=== PATIENT | male | born 1960 | race Hispanic/Latino ===

== ENCOUNTER 2020-07-06 10:34 | Observation (INO) | payer BC, OTHER ==
--- NOTE | 2020-07-06 11:54 | RAD REPORT ---
EXAM DESCRIPTION: RAD - Chest Single View - 07/06/2020 11:43 am CLINICAL HISTORY: SOB Chest pain. COMPARISON: No comparisons FINDINGS: Portable technique limits examination quality. Moderate bilateral pulmonary edema. The heart is moderately enlarged. No displaced fractures. IMPRESSION: Moderate CHF versus volume overload pattern.
[2020-07-06 12:15] LABS: Absolute Lymphocytes (CBC) 0.7 K/uL (0.7-4.9); Basophils % 0.5 % (0-1.3); Hematocrit 32.5 % (39.6-49.0); Lymphocytes % 7.3 % (15.3-44.8); MPV 7.9 fL (7.6-11.3); RBC Red Blood Cell Count 4.23 M/uL (4.33-5.43)
[2020-07-06 12:17] LABS: Protime INR 1.02
[2020-07-06 12:32] LABS: ALT/SGPT 18 U/L (12-78); AST/SGOT 14 U/L (15-37); Alkaline Phosphatase 90 U/L (45-117); BUN Blood Urea Nitrogen 65 mg/dL (7-18); Bicarbonate 29 mmol/L (21-32); Bilirubin Direct 0.2 mg/dL (0-0.2); Bilirubin Total 0.6 mg/dL (0.2-1.0); Glucose Level 147 mg/dL (74-106); Magnesium 2.5 mg/dL (1.8-2.4); NT PRO-BNP 22709 pg/mL (<125); Protein, Total 7.7 g/dL (6.4-8.2); Sodium Level 144 mmol/L (136-145); Troponin (Emerg Dept Use Only) < 0.02 ng/mL (0.0-0.045)
[2020-07-06 12:54] LABS: Blood Morphology Comment NOTED (NOT SEEN); Platelet Estimate ADEQ; White Blood Cell Scan OK (OK)
[2020-07-06 12:55] LABS: Anisocytosis 2+
--- NOTE | 2020-07-06 13:29 | EDPHYS ---
Physician Documentation [facility] Name: Robin Lee Age: 60 yrs Sex: Male : 1960 Arrival Date: 07/06/2020 Time: 10:36 Bed 13 Private MD: ED Physician Chato Trent HPI: 07/06 11:17 This 60 yrs old Male presents to ER via Wheelchair with complaints of pm1 Shortness Of Breath, Dizziness, Cough. 11:17 The patient has shortness of breath with light activity. Onset: The symptoms/episode pm1 began/occurred 1 month(s) ago. Duration: The symptoms are continuous, and are steadily getting worse. The patient's shortness of breath is aggravated by exertion, 10 pound weight gain in the past 1 month with onset of his exertional shortness of breath. Associated signs and symptoms: Pertinent positives: non-productive cough, 3 days constipation, Pertinent negatives: chest pain, fever, nausea, vomiting. Severity of symptoms: in the emergency department the symptoms are worse Patient reports shortness of breath is worse with exertion because the past two days he gets dizziness with his shortness of breath and had a near syncopal event today with light exertion. The patient has not experienced similar symptoms in the past. PCP Dr. Kc, Nephrology [facility]. Patient still creates urine. Onset of peritoneal dialysis in September 2019. Historical: - Allergies: 10:44 No Known Allergies; ca1 - PMHx: 10:44 peritoneal dialysis; Hypertension; Diabetes - NIDDM; High Cholesterol; ca1 - PSHx: 10:44 Peritoneal dialysis port; ca1 - Immunization history:: Adult Immunizations up to date, Flu vaccine is up to date. - Social history:: Smoking status: Patient denies any tobacco usage or history of. ROS: 11:17 Constitutional: Negative for fever, chills, and weight loss, Eyes: Negative for injury, pm1 pain, redness, and discharge, ENT: Negative for injury, pain, and discharge. 11:17 Back: Negative for injury and pain, : Negative for injury, bleeding, discharge, and swelling, MS/Extremity: Negative for injury and deformity, Skin: Negative for injury, rash, and discoloration. 11:17 Cardiovascular: Positive for bilateral pedal edema, Negative for chest pain. 11:17 Respiratory: Positive for cough, shortness of breath, on exertion. 11:17 Abdomen/GI: Positive for constipation, Negative for abdominal pain, nausea, vomiting, and diarrhea. 11:17 Neuro: Positive for dizziness, with shortness of breath and exertion. Exam: 11:17 Constitutional: This is a well developed, well nourished patient who is awake, alert, pm1 and in no acute distress. Head/Face: Normocephalic, atraumatic. 11:17 Skin: Warm, dry with normal turgor. Normal color with no rashes, no lesions, and no evidence of cellulitis. MS/ Extremity: Pulses equal, no cyanosis. Neurovascular intact. Full, normal range of motion. 11:17 Cardiovascular: Exam negative for acute changes, Rate: normal, Rhythm: regular, Pulses: no pulse deficits are appreciated, Edema: 2+ edema to level of bialteral lower extermities. 11:17 Respiratory: the patient does not display signs of respiratory distress, Breath sounds: decreased breath sounds, are located in both bases. 11:17 Abdomen/GI: Inspection: obese Palpation: abdomen is soft and non-tender, in all quadrants. 11:17 Neuro: Exam negative for acute changes, Orientation: is normal, Mentation: is normal, Motor: is normal, moves all fours. Vital Signs: 10:41 BP 170 / 72; Pulse 64; Resp 18 S; Temp 98.9(TE); Pulse Ox 97% on R/A; Weight 115.21 kg ca1 (R); Height 5 ft. 9 in. (175.26 cm) (R); 11:43 BP 167 / 72; Pulse 66; Resp 18; Pulse Ox 96% on R/A; ph 12:00 BP 160 / 65; Pulse 62; Resp 14; Pulse Ox 97% on R/A; ph 13:00 BP 166 / 76; Pulse 65; Resp 16; Pulse Ox 97% on R/A; zb 14:00 BP 172 / 80; Pulse 63; Resp 16; Pulse Ox 97% on R/A; zb 15:00 BP 171 / 79; Pulse 63; Resp 18; Pulse Ox 95% on R/A; zb 16:00 BP 173 / 103; Pulse 62; Resp 16; Pulse Ox 97% on R/A; zb 17:00 BP 180 / 80; Pulse 63; Resp 16; Pulse Ox 96% on R/A; zb 10:41 Body Mass Index 37.51 (115.21 kg, 175.26 cm) ca1 MDM: 10:54 Patient medically screened. pm1 12:33 Data reviewed: vital signs. Data interpreted: Pulse oximetry: on is 97 %. pm1 Interpretation: normal. 13:25 Physician consultation: Lakisha Pa MD regarding consult, patient's pm1 condition, and will see patient recommended lasix 80mg IVP BID. Will see the patient provided that he can stay in the hospital here due to peritoneal dialysis. 13:27 Counseling: I had a detailed discussion with the patient and/or guardian regarding: the pm1 historical points, exam findings, and any diagnostic results supporting the discharge/admit diagnosis, radiology results, the need for further work-up and treatment in the hospital, to return to the emergency department if symptoms worsen or persist or if there are any questions or concerns that arise at home. 13:38 ED course: Station Mechanic Apprentice contacted and patient can stay in the hospital with pm1 peritoneal dialysis provided he and his due the dialysis treatment and bring all their supplies for it. Patient and informed and she is going to go home to get his dialysis supplies and CPAP machine. 13:42 Physician consultation: Lakisha Pa MD informed her that patient is able pm1 to stay in the hospital here and we would appreciate her consultation . 14:03 Physician consultation: Tico Padron was called at 14:03, was contacted at 14:03, pm1 regarding admission, patient's condition, and will see patient. 07/06 11:02 Order name: Basic Metabolic Panel pm1 07/06 11:02 Order name: CBC with Diff pm1 07/06 11:02 Order name: LFT's pm1 07/06 11:02 Order name: Magnesium; Complete Time: 12:43 pm1 07/06 11:02 Order name: NT PRO-BNP; Complete Time: 12:43 pm1 07/06 11:02 Order name: PT-INR; Complete Time: 12:43 pm1 07/06 11:02 Order name: Troponin (emerg Dept Use Only); Complete Time: 12:43 pm1 07/06 11:02 Order name: Flu; Complete Time: 13:59 pm1 12/31 11:02 Order name: Strep; Complete Time: 13:59 pm1 07/06 11:02 Order name: Basic Metabolic Panel; Complete Time: 12:43 EDMS 07/06 11:02 Order name: CBC with Automated Diff; Complete Time: 13:04 EDMS 07/06 11:02 Order name: Liver (Hepatic) Function; Complete Time: 12:43 EDMS 07/06 12:17 Order name: CBC Smear Scan; Complete Time: 13:04 EDMS 07/06 11:02 Order name: XRAY Chest (1 view); Complete Time: 11:55 pm1 07/06 11:02 Order name: EKG; Complete Time: 11:03 pm1 07/06 11:02 Order name: Cardiac monitoring; Complete Time: 11:37 pm1 07/06 11:02 Order name: EKG - Nurse/Tech; Complete Time: 11:36 pm1 07/06 11:02 Order name: IV Saline Lock; Complete Time: 12:32 pm1 07/06 11:02 Order name: Labs collected and sent; Complete Time: 12:33 pm1 07/06 11:02 Order name: O2 Per Protocol; Complete Time: 11:36 pm1 07/06 11:02 Order name: O2 Sat Monitoring; Complete Time: 11:36 pm1 07/06 11:02 Order name: Droplet/Contact Precautions; Complete Time: 12:07 pm1 07/06 13:44 Order name: Throat Culture EDMS 07/06 15:19 Order name: SARS-COV-2 RT PCR; Complete Time: 15:28 EDMS Administered Medications: 15:01 Drug: Lasix 80 mg Route: IVP; Site: left hand; zb 17:28 Follow up: Response: No adverse reaction zb Disposition: 07/07 07:01 Co-signature as Attending Physician, Chato Trent MD I agree with the assessment and aliya plan of care. Disposition: 07/06/20 13:29 Hospitalization ordered by Tico Padron for Inpatient Admission. Preliminary diagnosis are Pulmonary edema - volume overload, End stage renal disease, Shortness of breath, Dizziness and giddiness. - Bed requested for Telemetry/MedSurg (Inpatient). - Status is Inpatient Admission. zb - Condition is Stable. - Problem is new. - Symptoms have improved. Signatures: Dispatcher [employer] EDMS Marjorie Leyva RN Chato Siegel MD MD cha Marinas, Patrick, SUBSEA ENGINEER SUBSEA ENGINEER pm1 Paige Arango RN RN ca1 Brown, Zipporah, RN RN zb Corrections: (The following items were deleted from the chart) 07/06 14:33 11:03 CORONAVIRUS+MR.LAB.BRZ ordered. [facility] 16:45 13:29 Hospitalization Ordered by Tico Padron for Inpatient Admission. Preliminary diagnosis is Pulmonary edema - volume overloadEnd stage renal disease; Shortness of breath; Dizziness and giddiness. Bed requested for Telemetry/MedSurg (Inpatient). Status is Inpatient Admission. Condition is Stable. Problem is new. Symptoms have improved. pm1 17:38 16:45 07/06/2020 13:29 Hospitalization Ordered by Tico Padron for Inpatient zb Admission. Preliminary diagnosis is Pulmonary edema - volume overloadEnd stage renal disease; Shortness of breath; Dizziness and giddiness. Bed requested for Telemetry/MedSurg (Inpatient). Status is Inpatient Admission. Condition is Stable. Problem is new. Symptoms have improved. dw
--- NOTE | 2020-07-06 13:29 | ER ---
Nurse's Notes [facility] Name: Robin Lee Age: 60 yrs Sex: Male : 1960 Arrival Date: 07/06/2020 Time: 10:36 Bed 13 Private MD: Diagnosis: End stage renal disease;Shortness of breath;Pulmonary edema-volume overload;Dizziness and giddiness Presentation: 07/06 10:41 Chief complaint: Parent and/or Guardian states: Coughing, congestion, SOB and ca1 lightheadedness x 1 - 2 days worse today. Peritoneal dialysis pt. Denies fever. Coronavirus screen: Client denies travel out of the [place] in the last 14 days. congestion, cough unrelated to allergies, shortness of breath, Client presents with at least one sign or symptom that may indicate coronavirus-19. Standard/surgical mask placed on the client. Provider contacted for isolation considerations. The client reports previous COVID testing was negative. Date of collection: May 2020. Ebola Screen: Patient negative for fever greater than or equal to 101.5 degrees Fahrenheit, and additional compatible Ebola Virus Disease symptoms Patient denies exposure to infectious person. Patient denies travel to an Ebola-affected area in the 21 days before illness onset. No symptoms or risks identified at this time. Initial Sepsis Screen: Does the patient meet any 2 criteria? No. Patient's initial sepsis screen is negative. Does the patient have a suspected source of infection? No. Patient's initial sepsis screen is negative. Risk Assessment: Do you want to hurt yourself or someone else? Patient reports no desire to harm self or others. 10:41 Method Of Arrival: Wheelchair ca1 10:41 Acuity: CARLEE 3 ca1 10:41 Onset of symptoms was July 06, 2020. ca1 Historical: - Allergies: 10:44 No Known Allergies; ca1 - PMHx: 10:44 peritoneal dialysis; Hypertension; Diabetes - NIDDM; High Cholesterol; ca1 - PSHx: 10:44 Peritoneal dialysis port; ca1 - Immunization history:: Adult Immunizations up to date, Flu vaccine is up to date. - Social history:: Smoking status: Patient denies any tobacco usage or history of. Screenin:01 Abuse screen: Denies threats or abuse. Denies injuries from another. Nutritional ph screening: No deficits noted. Tuberculosis screening: No symptoms or risk factors identified. Fall Risk None identified. Assessment: 11:42 General: Appears in no apparent distress. comfortable, well groomed, Behavior is calm, ph cooperative, appropriate for age, Denies fever. Pain: Denies pain. Neuro: Level of Consciousness is awake, alert, obeys commands, Oriented to person, place, time, situation, Reports dizziness. Cardiovascular: Reports fatigue, lightheadedness, shortness of breath, Denies chest pain, Capillary refill < 3 seconds in bilateral fingers Patient's skin is warm and dry. Rhythm is regular. Respiratory: Reports shortness of breath at rest on exertion cough that is non-productive, Airway is patent Respiratory effort is even, unlabored, Respiratory pattern is regular, symmetrical. GI: No signs and/or symptoms were reported involving the gastrointestinal system. GI: Peritoneal dialysis catheter capped. Site is clean and dry. Derm: Skin is intact, Skin is pink, warm \T\ dry. Musculoskeletal: Circulation, motion, and sensation intact. Range of motion: intact in all extremities. 12:00 General: Appears in no apparent distress. comfortable, well groomed, Behavior is calm, ph cooperative, appropriate for age, Denies fever, chills. Pain: Denies pain. Neuro: Level of Consciousness is awake, alert, obeys commands, Oriented to person, place, time, situation, Reports dizziness. Cardiovascular: Reports fatigue, lightheadedness, shortness of breath, Denies chest pain, Heart tones S1 S2 muffled Capillary refill Patient's skin is warm and dry. Edema pitting to left ankle, left foot, left toes, right ankle, right foot and right toes Rhythm is regular. Respiratory: Reports shortness of breath at rest on exertion cough that is non-productive, labored breathing Airway is patent Respiratory effort is even, unlabored, Respiratory pattern is regular, symmetrical, Breath sounds are diminished in right middle lobe, left lower lobe and right lower lobe. GI: Abdomen is round non-distended, obese, Peritoneal dialysis catheter capped. Site is clean and dry. Reports constipation. : No signs and/or symptoms were reported regarding the genitourinary system. EENT: No signs and/or symptoms were reported regarding the EENT system. Derm: Skin is intact, is healthy with good turgor, Skin is dry, Skin is normal. Derm: Skin is intact, is healthy with good turgor, Skin is dry, Skin is normal. Musculoskeletal: Circulation, motion, and sensation intact. Range of motion: intact in all extremities. 12:00 Reassessment: Patient appears in no apparent distress at this time. 1200 completed by alexa hernandez. 13:00 Reassessment: Patient appears in no apparent distress at this time. Patient and/or zb family updated on plan of care and expected duration. Pain level reassessed. Patient is alert, oriented x 3, equal unlabored respirations, skin warm/dry/pink. family at bedside. pt instructed on plan of care. Patient denies pain at this time. 14:00 Reassessment: Patient appears in no apparent distress at this time. Patient and/or zb family updated on plan of care and expected duration. Pain level reassessed. Patient is alert, oriented x 3, equal unlabored respirations, skin warm/dry/pink. at bedside, discussed medications w/ patient and . 14:42 Reassessment: hospitalist at bedside. alexa 15:00 Reassessment: Patient appears in no apparent distress at this time. Patient and/or zb family updated on plan of care and expected duration. Pain level reassessed. Patient is alert, oriented x 3, equal unlabored respirations, skin warm/dry/pink. medication given. no adverse reaction. pt resting in bed. lights dimmed. TV on. 16:00 Reassessment: Patient appears in no apparent distress at this time. Patient and/or zb family updated on plan of care and expected duration. Pain level reassessed. Patient is alert, oriented x 3, equal unlabored respirations, skin warm/dry/pink. has brought PD machine. pt sitting down eating food with at this time. 17:00 Reassessment: Patient appears in no apparent distress at this time. Patient and/or zb family updated on plan of care and expected duration. Pain level reassessed. Patient is alert, oriented x 3, equal unlabored respirations, skin warm/dry/pink. at bedside. notified pt and of admission. Vital Signs: 10:41 BP 170 / 72; Pulse 64; Resp 18 S; Temp 98.9(TE); Pulse Ox 97% on R/A; Weight 115.21 kg ca1 (R); Height 5 ft. 9 in. (175.26 cm) (R); 11:43 BP 167 / 72; Pulse 66; Resp 18; Pulse Ox 96% on R/A; ph 12:00 BP 160 / 65; Pulse 62; Resp 14; Pulse Ox 97% on R/A; ph 13:00 BP 166 / 76; Pulse 65; Resp 16; Pulse Ox 97% on R/A; zb 14:00 BP 172 / 80; Pulse 63; Resp 16; Pulse Ox 97% on R/A; zb 15:00 BP 171 / 79; Pulse 63; Resp 18; Pulse Ox 95% on R/A; zb 16:00 BP 173 / 103; Pulse 62; Resp 16; Pulse Ox 97% on R/A; zb 17:00 BP 180 / 80; Pulse 63; Resp 16; Pulse Ox 96% on R/A; zb 10:41 Body Mass Index 37.51 (115.21 kg, 175.26 cm) ca1 ED Course: 10:36 Patient arrived in ED. ag5 10:43 Triage completed. ca1 10:44 Arm band placed on right wrist. ca1 10:48 Isela Montano, RN is Primary Nurse. ph 10:53 Ajay Alcantara, GAS SYSTEM OPERATOR is PHCP. pm1 10:53 Chato Trent MD is Attending Physician. pm1 11:01 Patient has correct armband on for positive identification. Bed in low position. Call ph light in reach. Side rails up X 1. awake overnight monitor on. Pulse ox on. NIBP on. Door closed. Noise minimized. 11:43 XRAY Chest (1 view) In Process Unspecified. EDMS 11:44 Missed attempt(s): 20 gauge in right antecubital area. Bleeding controlled, band aid ph applied, catheter tip intact. 12:04 Initial lab(s) drawn, by me, sent to lab. Inserted saline lock: 22 gauge in left mh5 antecubital area, using aseptic technique. Blood collected. 13:28 Tico Padron is Hospitalizing Provider. pm1 17:27 Patient admitted, IV remains in place. zb 17:27 No provider procedures requiring assistance completed. zb Administered Medications: 15:01 Drug: Lasix 80 mg Route: IVP; Site: left hand; zb 17:28 Follow up: Response: No adverse reaction zb Outcome: 13:29 Decision to Hospitalize by Provider. pm1 17:26 Admitted to Med/surg accompanied by tech, room 211, with chart, Report called to alexa Post RN 17:26 Condition: stable 17:26 Discharge instructions given to patient, family, Instructed on the need for admit, Demonstrated understanding of instructions. 17:38 Patient left the ED. alexa Signatures: Dispatcher [employer] EDOK Isela Montano RN RN ph Marinas, Patrick, GAS SYSTEM OPERATOR GAS SYSTEM OPERATOR pm1 Sonia Velasco [facility] Paige Arango RN RN ca1 Gaskin, Ajare 5 Mary Javier RN RN zb
[2020-07-06] MEDS ORDERED: FUROSEMIDE 100 MG/10 ML VIAL IV ONE (13:49)
--- NOTE | 2020-07-06 15:09 | P.HP ---
Certification for Inpatient Patient admitted to: Inpatient With expected LOS: >2 Midnights Practitioner: I am a practitioner with admitting privileges, knowledge of patient current condition, hospital course, and medical plan of care. Services: Services provided to patient in accordance with Admission requirements found in Title 42 Section 412.3 of the Code of Federal Regulations Patient History Date of Service: 07/06/20 Reason for admission: Shortness of breath History of Present Illness: 60-year-old with a history of end-stage renal disease on peritoneal dialysis, hypertension and borderline diabetes presented to the emergency department with a complaint of progressive shortness of breath over the past 2 days. His shortness of breath progressed from with exertion to shortness of breath at rest. He is complaining of orthopnea. Patient stated his symptoms were associated with lightheadedness. He attributes his shortness of breath or increased fluid retention form dietary indiscretion. Chest x-ray done in emergency department demonstrate pulmonary vascular congestion. Rapid COVID 19 test his pending. Patient has no fever, no leukocytosis and not septic. Nep hrology Dr. Mcelroy informed recommended IV lasix in addition to his peritoneal dialysis. Patient is admitted for further management. - Past Medical/Surgical History -: ESRD -: Peritoneal dialysis -: Hypertension -: Diabetes -: Obesity -: Obstructive sleep apnea -: Peritoneal dialysis catheter placement - Family History Family History: Reviewed- Non-Contributory (Patient states that diabetes runs in her mother's family.) - Social History Smoking Status: Former smoker Alcohol use: No CD- Drugs: No Place of Residence: Home Review of Systems Other: Except as documented, all other systems reviewed and negative. Physical Examination - Physical Exam General: Alert, In no apparent distress, Oriented x3, Obese HEENT: Atraumatic, PERRLA, Mucous membr. moist/pink, EOMI, Sclerae nonicteric Neck: Supple, JVD not distended Respiratory: Normal air movement, Crackles/rales (Mild bibasilar rales, no rhonchi.) Cardiovascular: Regular rate/rhythm, Normal S1 S2, No murmurs, Edema (Bilateral lower and upper extremities) Gastrointestinal: Normal bowel sounds, Soft and benign, Non-distended, No tenderness Musculoskeletal: No swelling, No tenderness Integumentary: No rashes, No erythema Neurological: Normal speech, Normal strength at 5/5 x4 extr, Cranial nerves 3-12 intact - Studies Laboratory Data (last 24 hrs) 07/06/20 11:58: PT 12.0, INR 1.02 07/06/20 11:58: WBC 10.0, Hgb 10.1 L, Hct 32.5 L, Plt Count 175 07/06/20 11:58: Sodium 144, Potassium 5.0, BUN 65 H, Creatinine 14.20 H*, Glucose 147 H, Magnesium 2.5 H, Total Bilirubin 0.6, AST 14 L, ALT 18, Alkaline Phosphatase 90 Microbiology Data (last 24 hrs): 07/06/20 11:30 Nasopharnyx Influenza Type A Antigen Screen - Final 07/06/20 11:30 Nasopharnyx Influenza Type B Antigen Screen - Final 07/06/20 11:30 Throat Group A Streptococcus Rapid Screen - Final Assessment and Plan - Problems (Diagnosis) (1) Pulmonary edema Current Visit: Yes Status: Acute (2) End stage renal disease Current Visit: Yes Status: Acute (3) Peritoneal dialysis status Current Visit: Yes Status: Acute (4) Obstructive sleep apnea Current Visit: Yes Status: Acute (5) Hypertension Current Visit: Yes Status: Acute (6) Obesity Current Visit: Yes Status: Acute - Plan Admit patient to the medical floor. Nephrology consulted to assist with management. Nephrology recommend IV Lasix. Monitor intake and output. Daily weight. Restrict free water to 1500 ml/day. Monitor renal function. Insulin sliding scale for glucose management. Continue home antihypertensives. CPAP during sleep. - Advance Directives Does patient have a Living Will: No Does patient have a Durable POA for Healthcare: No
[2020-07-06 16:44] VITALS: BMI 36.9
[2020-07-06] MEDS: INSULIN -REGULAR HUMAN 50 UNIT/0.5 ML ML SQ SCH ×2 (18:29→20:31)
[2020-07-06] MEDS: HEPARIN 5000 UNIT/ML 1 ML VIAL SQ SCH (18:29)
[2020-07-06] MEDS: FUROSEMIDE 40 MG/4 ML VIAL IV SCH (18:30)
[2020-07-06] MEDS ORDERED: carvediloL 12.5 MG TAB PO ONE (20:22)
--- NOTE | 2020-07-06 21:17 | CON ---
duplicate EB/MODL Voice ID: [id number] Report ID: [id number]
--- NOTE | 2020-07-06 21:38 | CON ---
Date of Consultation: 07/06/2020 Chief Complaint: Severe shortness of breath, congestive heart failure, fluid overload. History Of Present Illness: Patient came to the hospital because of shortness of breath. He has history of end-stage renal disease, on peritoneal dialysis; history of hypertension and prediabetes. Patient came to the hospital because of generalized weakness and shortness of breath. He was experiencing progressively worse dyspnea over the last 2 days. From dyspnea on exertion, it progressed to PND. Patient is complaining also of orthopnea. Patient was complaining of lightheadedness and some generalized weakness. Denied wheezing. Denied fever or chills. Currently, patient was not compliant with p.o. fluid restriction. Chest x-ray done in the emergency department demonstrates pulmonary vascular congestion. Rapid COVID-19 test is pending. Patient did not have fevers. There was no abnormal leukocytosis. Lasix was started for volume control and patient is to resume peritoneal dialysis Past Medical History: End-stage renal disease, peritoneal dialysis, hypertension, diabetes mellitus, obesity, obstructive sleep apnea, peritoneal dialysis, catheter placement. Family History: No kidney disease in the family. Social History: Denies tobacco, alcohol, or illicit drugs. The patient is a former smoker. Review of Systems: Denies fever or chills. Eyes: Denies vision changes. Ears, Nose, Mouth, and Throat: Denies sore throat or earache. Respiratory: Has shortness of breath with extension and at rest. Denies wheezing or syncope. GI: Denies nausea or vomiting. : Denies dysuria or hematuria. All other systems reviewed and all are negative. Physical Examination: GENERAL: The patient is alert, not in distress, oriented x3, obese. Eyes: Anicteric sclerae. EOMI. Ears, Nose, Mouth, and Throat: Oral mucosa moist. No pallor. Neck: Supple. No bruits. Lungs: Few rhonchi. Diminished breath sounds at bases. Heart: S1, S2. No pericardial friction rub. Abdomen: Obese, soft, nontender. No rebound. No guarding. Extremities: Edema present in the legs. No skin rash. No erythema. Neurological: Moving extremities. Cranial nerves intact. Psychiatric: Alert and oriented x3. Normal affect. Laboratory Data: WBC 10.0, hemoglobin 10.1, hematocrit 32.5, platelet count 175,000. Sodium 144, potassium 5, BUN 65, creatinine 14.2, glucose 147, BUN 2.5. Impression And Plan: 1. End-stage renal disease, fluid overload. Chest x-ray showed pulmonary congestion. The patient will resume low sodium diet, p.o. fluid restriction. Plan is to start Lasix for interstitial pulmonary edema. The patient will have workup with Cardiology to rule out acute coronary syndrome. COVID test is pending to rule out pneumonia. 2. End-stage renal disease. Continue renal diet and p.o. fluid restriction. Resume peritoneal dialysis during this hospitalization. 3. Obstructive sleep apnea. Per primary team. 4. Hypertension. Resume beta-pamela. Advance Lasix for volume control. The patient will have peritoneal dialysis along with diuretic treatment. The patient may benefit from IV Lasix and Lasix drips. Plan is to re-evaluate urine output and adjust Lasix dose accordingly. 5. Anemia in chronic kidney disease. Monitor hemoglobin level. At this point, the patient does not need HAL. 6. Renal osteodystrophy. Monitor phosphorus level and adjust binders. EB/MODL Voice ID: [id number] Report ID: [id number] CHAR
[2020-07-07] MEDS: HEPARIN 5000 UNIT/ML 1 ML VIAL SQ SCH ×2 (00:18→09:59)
[2020-07-07 00:44] LABS: Urine Appearance CLEAR; Urine Bilirubin NEGATIVE (NEG); Urine Blood TRACE (NEG); Urine Color YELLOW; Urine Glucose TRACE (NEG); Urine Protein 3+ (NEG); Urine Urobilinogen 0.2 mg/dL (0.2-1.0)
[2020-07-07 00:49] LABS: Urine Microscopic Reflex ORDER UMIC
[2020-07-07 00:53] LABS: Urine Bacteria <20 /HPF (NONE SEEN)
[2020-07-07 00:54] LABS: Urine Mucus 1+ /HPF (NONE SEEN)
[2020-07-07 05:49] LABS: Hematocrit 27.2 % (39.6-49.0); Lymphocytes % 15.8 % (15.3-44.8); RBC Red Blood Cell Count 3.53 M/uL (4.33-5.43)
[2020-07-07 06:21] LABS: Magnesium 2.5 mg/dL (1.8-2.4); Phosphorus 6.2 mg/dL (2.5-4.9); Potassium 4.5 mmol/L (3.5-5.1); Thyroid Stimulating Hormone 1.53 uIU/mL (0.360-3.740)
[2020-07-07] MEDS: INSULIN -REGULAR HUMAN 50 UNIT/0.5 ML ML SQ SCH ×2 (07:30→11:30)
[2020-07-07] MEDS ORDERED: AMLODIPINE 10 MG TAB PO SCH (09:00)
[2020-07-07] MEDS ORDERED: HYDRALAZINE HCL 25 MG TABLET PO SCH ×2 (09:00→14:00)
[2020-07-07] MEDS: carvediloL 12.5 MG TAB PO SCH ×2 (09:58→18:50)
[2020-07-07] MEDS: FUROSEMIDE 40 MG/4 ML VIAL IV SCH ×2 (09:59→18:50)
--- NOTE | 2020-07-07 15:47 | P.DS ---
Admission Date: 07/06/20 Discharge Date: 07/07/20 Disposition: ROUTINE DISCHARGE Discharge Condition: FAIR Reason for Admission: Shortness of breath - Problems (1) Pulmonary edema Current Visit: Yes Status: Acute (2) End stage renal disease Current Visit: Yes Status: Acute (3) Peritoneal dialysis status Current Visit: Yes Status: Acute (4) Obstructive sleep apnea Current Visit: Yes Status: Acute (5) Hypertension Current Visit: Yes Status: Acute (6) Obesity Current Visit: Yes Status: Acute Brief History of Present Illness: 60-year-old with a history of end-stage renal disease on peritoneal dialysis, hypertension and borderline diabetes presented to the emergency department with a complaint of progressive shortness of breath over the past 2 days. His shortness of breath progressed from with exertion to shortness of breath at rest. He is complaining of orthopnea. Patient stated his symptoms were associated with lightheadedness. He attributes his shortness of breath or increased fluid retention form dietary indiscretion. Chest x-ray done in emergency department demonstrate pulmonary vascular congestion. Rapid COVID 19 test his pending. Patient has no fever, no leukocytosis and not septic. Nephrology Dr. Mcelroy informed who recommended IV lasix in addition to his peritoneal dialysis. Patient was admitted for further management. Hospital Course: Patient admitted to the medical floor and treated with IV Lasix per nephrology recommendation. He was seen in consultation by nephrology Dr. Mcelroy. Dr. Mcelroy also added metolazone to aid with diuresis. His shortness of breath significantly improved with diuresis. Patient was ambulating in the hallway without oxygen and denied shortness of breath. Patient has improved clinically. He is discharged to continue his home dose Bumex. Metolazone is added. Salt restricted diet recommended. He is also informed to follow with his real estate intern within 3-5 days. Vital Signs/Physical Exam: Temp Pulse Resp BP Pulse Ox 98.5 F 66 16 181/79 H 93 07/07/20 12:00 07/07/20 12:00 07/07/20 12:00 07/07/20 12:07/07/20 12:00 General: Alert, In no apparent distress, Oriented x3 HEENT: Mucous membr. moist/pink Neck: Supple, JVD not distended Respiratory: Clear to auscultation bilaterally, Normal air movement Cardiovascular: Regular rate/rhythm, Normal S1 S2, Edema (Trace bilateral lower extremity edema) Gastrointestinal: Normal bowel sounds, Soft and benign, Non-distended, No tenderness Musculoskeletal: No swelling Integumentary: No rashes Neurological: Normal strength at 5/5 x4 extr Laboratory Data at Discharge: WBC 6.5 K/uL (4.3-10.9) D 07/07/20 05:24 Hgb 8.5 g/dL (13.6-17.9) L 07/07/20 05:24 Hct 27.2 % (39.6-49.0) L D 07/07/20 05:24 Plt Count 155 K/uL (152-406) 07/07/20 05:24 PT 12.0 SECONDS (9.5-12.5) 07/06/20 11:58 INR 1.02 07/06/20 11:58 Sodium 144 mmol/L (136-145) 07/07/20 05:22 Potassium 4.5 mmol/L (3.5-5.1) 07/07/20 05:22 BUN 65 mg/dL (7-18) H 07/07/20 05:22 Creatinine 14.50 mg/dL (0.55-1.3) H* 07/07/20 05:22 Glucose 146 mg/dL (74-106) H 07/07/20 05:22 Phosphorus 6.2 mg/dL (2.5-4.9) H 07/07/20 05:22 Magnesium 2.5 mg/dL (1.8-2.4) H 07/07/20 05:22 Total Bilirubin 0.6 mg/dL (0.2-1.0) 07/06/20 11:58 AST 14 U/L (15-37) L 07/06/20 11:58 ALT 18 U/L (12-78) 07/06/20 11:58 Alkaline Phosphatase 90 U/L (45-117) 07/06/20 11:58 Home Medications: RX: Amlodipine [Norvasc*] 10 mg PO BID 07/06/20 RX: Bumetanide [Bumex*] 2 mg PO DAILY 07/06/20 RX: Hydralazine [Apresoline*] 25 mg PO BID 07/06/20 RX: carvediloL [Coreg*] 12.5 mg PO BID 07/06/20 RX: Sevelamer Carbonate [Renvela*] 1,600 mg PO TIDWM #180 tablet 07/07/20 RX: metOLazone [Zaroxolyn*] 5 mg PO DAILY #30 tab 07/07/20 New Medications: RX: Sevelamer Carbonate [Renvela*] 1,600 mg PO TIDWM #180 tablet RX: metOLazone [Zaroxolyn*] 5 mg PO DAILY #30 tab Patient Discharge Instructions: Please follow up with your Ethanol Operations Manager within 3 - 5 days. Diet: Renal Activity: Ad atul Followup: Unknown,U [Primary Care Provider] - 1 Week
--- NOTE | 2020-07-07 16:10 | EKG ---
Test Date: 2020-07-06 Test Time: 11:18:37 Rn Access: PH MEASUREMENT RESULTS: Intervals: Rate: 61 VT: QRSD: 74 QT: 484 QTc: 487 [place]: P: VT: QRS: 12 T: 17 INTERPRETIVE STATEMENTS: Junctional rhythm Low voltage QRS Cannot rule out Anterior infarct, age undetermined Abnormal ECG No previous ECG available for comparison Electronically Signed On 07-07-20 16:09:28 TALENT ANALYST by Geovany Bourgeois
[2020-07-07 16:30] VITALS: BP 148/67; TEMP 98.2
[2020-07-07] MEDS ORDERED: SEVELAMER CARBONATE 800 MG TABLET PO SCH (17:00)
[2020-07-07 19:51] VITALS: O2SAT 95
--- NOTE | 2020-07-07 22:40 | PN ---
Date of Progress Note: 07/07/2020 Chief Complaint: Shortness of breath, congestive heart failure, end-stage renal disease, on PD dialy sis. History Of Present Illness: Patient came to the hospital because of progressively worse shortness of breath. Chest x-ray showed interstitial pulmonary edema, increased neurovascular changes. Patient has multiple medical problems including end-stage renal disease, on peritoneal dialysis. He denies P ND, orthopnea. Patient had screen test done for COVID infection and [facility] There was no abnormal leukocytosis. Patient was started on Lasix and metolazone. Today, he is feeling better. Review of Systems: Denies PND, orthopnea. Physical Examination: Lungs: Diminished breath sounds at bases. Heart: S1-S2. Abdomen: Soft, benign. Extremities: Minimal edema. Laboratory Data: Sodium 144, potassium 4.5, chloride 107, CO2 30, BUN 65, creatinine 14.5. Calcium 7.4, magnesium 2.5, albumin 3.0, glucose 156, hemoglobin 8.5, WBC 6.5, platelet count is 155,000. Impression: 1.Congestive heart failure, fluid overload. Continue p.o. fluid restriction. Continue Bumex and me tolazone outpatient. Patient is feeling better. 2.Hypertension. Blood pressure medication increased. Hydralazine was increased to control congesti ve heart failure and accelerated hypertension. 3.Hypervolemia. Lasix IV was started. Patient responded to diuretics. Continue maintenance diuretic. Follow up with Nephrology outpatient. MELINDA/ARMANDO Voice ID: [id number] Report ID: [id number]
[2020-07-08] MEDS ORDERED: METOLAZONE 5 MG TABLET PO SCH (09:00)
== END 2020-07-07 20:39 | disposition home or self-care (01) ==
LOC: ER 10:34 → ERHOLD 14:58 → INTOOBSV 14:58 → 2ND 17:25
PROVIDERS: ADMIT Internal Medicine; ATTEND Internal Medicine
DX: I13.2 Hypertensive heart and chronic kidney disease with heart failure and with stage 5 chronic kidney disease, or end stage renal disease (principal); I50.9 Heart failure, unspecified; N18.6 End stage renal disease; Z99.2 Dependence on renal dialysis; G47.33 Obstructive sleep apnea (adult) (pediatric); E66.9 Obesity, unspecified; Z20.828 Contact with and (suspected) exposure to other viral communicable diseases; R94.31 Abnormal electrocardiogram [ECG] [EKG]; E11.22 Type 2 diabetes mellitus with diabetic chronic kidney disease; Z87.891 Personal history of nicotine dependence; N25.0 Renal osteodystrophy; Z68.37 Body mass index [BMI] 37.0-37.9, adult
CPT/HCPCS: 93005; 87070; 85025 ×2; 80048 ×2; 36415; 83735 ×2; 84100; 85610; 82947 ×6; 80076; 87081; 84443; 84484; 83880; 87804 ×2; 71045; 96374; 99285; U0003; J1940 ×3; J1644 ×3; 81003; 81015

== ENCOUNTER 2024-05-14 10:36 | Observation (INO) | payer MEDICAID, BC ==
[2024-05-14] MEDS ORDERED: ASPIRIN 81 MG CHEWABLE TABLET ONE (10:46)
[2024-05-14 11:14] LABS: Absolute Basophils 0.1 K/uL (0-0.5); Absolute Eosinophils 0.1 K/uL (0-0.5); Absolute Lymphocytes (CBC) 0.9 K/uL (0.7-4.9); Absolute Monocytes 0.5 K/uL (0.1-1.3); Absolute Neutrophil 4.7 K/uL (1.8-8.0); Basophils % 1.4 % (0-1.3); Eosinophils % 1.2 % (0-4.4); Hematocrit 38.7 % (39.6-49.0); Hemoglobin 12.6 g/dL (13.6-17.9); Lymphocytes % 14.5 % (15.3-44.8); MCH 30.6 pg (27.0-35.0); MCHC 32.7 g/dL (32.0-36.0); MCV 93.6 fL (80-100); MPV 7.8 fL (7.6-11.3); Monocytes % 8.4 % (3.3-12.3); Neutrophils % 74.5 % (41.7-73.7); Platelets 224 thou/uL (152-406); RBC Red Blood Cell Count 4.13 M/uL (4.33-5.43); Red Cell Distribution Width 14.4 % (12.1-15.2)
--- NOTE | 2024-05-14 11:43 | RAD REPORT ---
EXAM: CTA of the chest, abdomen and pelvis HISTORY: Chest pain and back pain back pain, chest pain COMPARISON: None TECHNIQUE: Multiple contiguous axial images were obtained a CTA of the chest and abdomen with contras t per aortic dissection protocol. This involves 3D reconstructions, MIPs, volume rendered images and/or shaded surface rendering. One or more of the following dose reduction techniques were used: Au tomated exposure control, adjustment of the mA and/or kV according to patient size, and/or iterative reconstruction. Unless otherwise specified, incidental findings do not require dedicated im aging follow-up. Sagittal and coronal 3-D MIP reformats were performed. FINDINGS: PULMONARY ARTERIES: Normal in caliber without filling defects to suggest pulmonary emboli. ASCENDING THORACIC AORTA: Normal caliber without evidence of dissection or aneurysmal dilatation. Mo derate atherosclerosis of the aortic arch seen. DESCENDING THORACIC AORTA: Normal caliber without evidence of dissection or aneurysmal dilatation. ABDOMINAL AORTA: Normal caliber without evidence of dissection or aneurysmal dilatation. CELIAC TRUNK: Patent. SMA: Patent JENNY: Patent RENAL ARTERIES: Bilateral single renal arteries without significant atherosclerotic disease. MEDIASTINUM: Mild presumably reactive lymphadenopathy seen in the mediastinum. LUNGS: Airspace opacity in the left lung base is present associated with a small amount of pleural fl uid. Trace right pleural fluid. PLEURAL SPACE: Small loculated left pleural effusion and trace right pleural effusion. LIVER: Unremarkable. Possible small gallstones are present. SPLEEN: Unremarkable. PANCREAS: Unremarkable. KIDNEYS: Mild to moderate renal atrophy.. ADRENALS: Unremarkable. BOWEL: Unremarkable. Normal appendix. RETROPERITONEUM: No lymphadenopathy. BONES: Unremarkable ADDITIONAL FINDINGS: Benign right paraspinal muscle 5 cm lipoma. IMPRESSION: No evidence of thoracic or abdominal aortic aneurysm or dissection. Airspace opacity in the left base associated with a small loculated pleural effusion could be related to infection/pneumonia. Follow-up imaging after appropriate treatment to ensure complete clearance is recommended.
[2024-05-14 12:09] LABS: Anion Gap 13.4 mEq/L (5.0-15.0); Potassium 4.4 mEq/L (3.5-5.1)
[2024-05-14 12:10] LABS: Troponin High Sensitivity 213.4 pg/mL (<58.9)
--- NOTE | 2024-05-14 12:19 | RAD REPORT ---
EXAMINATION: ONE VIEW CHEST XR CLINICAL INDICATION: CHEST PAIN TECHNIQUE: Frontal chest projection is submitted. Examination is limited by patient positioning and t echnique. COMPARISON: 10/21/2022 FINDINGS: [id number]-[id number] pulmonary edema pattern. The heart is moderately enlarged in size. No displaced frac tures identified. IMPRESSION: Moderate CHF suspected.
--- NOTE | 2024-05-14 13:03 | EDPHYS ---
Physician Documentation [facility] Name: Robin Lee Age: 64 yrs Sex: Male : 1960 Arrival Date: 05/14/2024 Time: 10:36 Bed 3 Private MD: ED Physician Bassem Jones HPI: 05/14 10:45 This 64 yrs old Male presents to ER via Unassigned with complaints of Chest ms3 Pain. 10:45 64 year old male presents to the emergency department for experiencing pain on the ms3 right side of his back, near the site of previous lung surgery while watching TV. Initially attributing the pain to sitting incorrectly, the patient noted that the pain worsened and was accompanied by chest tightness. The symptoms began approximately 15 to 20 minutes prior to arrival. The patient contacted his girlfriend due to concern about the increasing chest tightness. Patient endorses vomiting, diaphoresis, and radiation of his chest pain down his left arm.. Historical: - Allergies: 10:49 No Known Allergies; iw - PMHx: 10:49 Diabetes - NIDDM; High Cholesterol; Hypertension; Dialysis; iw - Immunization history:: Adult Immunizations up to date. - Infectious Disease History:: Denies. - Social history:: Smoking status: Patient denies any tobacco usage or history of. ROS: 10:45 Constitutional: Negative for fever, and chills. ms3 10:45 Respiratory: Negative for shortness of breath, cough, wheezing, and pleuritic chest pain, Abdomen/GI: Negative for abdominal pain, nausea, vomiting, diarrhea, and constipation, MS/Extremity: Negative for injury and deformity, Skin: Negative for injury, rash, and discoloration, 10:45 Cardiovascular: Positive for chest pain, Exam: 10:45 Constitutional: This is a well developed, well nourished patient who is awake, alert, ms3 and in no acute distress. Neck: Trachea midline, no cervical lymphadenopathy. Supple, full range of motion without nuchal rigidity, or vertebral point tenderness. No Meningismus. Chest/axilla: Normal chest wall appearance and motion. Nontender with no deformity. Cardiovascular: Regular rate and rhythm with a normal S1 and S2. No gallops, murmurs, or rubs. Normal PMI, no JVD. No pulse deficits. Respiratory: Lungs have equal breath sounds bilaterally, clear to auscultation and percussion. No rales, rhonchi or wheezes noted. No increased work of breathing, no retractions or nasal flaring. Abdomen/GI: Soft, non-tender, with normal bowel sounds. No distension or tympany. No guarding or rebound. No evidence of tenderness throughout. Back: No spinal tenderness. No costovertebral tenderness. Full range of motion. Skin: Warm, dry with normal turgor. Normal color with no rashes, no lesions, and no evidence of cellulitis. MS/ Extremity: Pulses equal, no cyanosis. Neurovascular intact. Full, normal range of motion. 11:03 ECG was reviewed by the Attending Physician. ms3 Vital Signs: 10:48 Weight 111.13 kg; Height 5 ft. 9 in. ; Pain 9/10; iw 11:16 BP 214 / 91; Pulse 81; Resp 20; Pulse Ox 100% on R/A; MAP 128 mmHg; tm6 12:22 BP 227 / 97; Pulse 74; Resp 22; Pulse Ox 100% on R/A; tl4 13:34 BP 202 / 71; Pulse 69; Pulse Ox 98% on R/A; MAP 110 mmHg; tm6 13:58 BP 182 / 92; Pulse 71; Pulse Ox 97% on R/A; MAP 116 mmHg; tm6 14:29 BP 194 / 89; Pulse 72; Pulse Ox 96% on R/A; MAP 120 mmHg; tm6 10:48 Body Mass Index 36.18 (111.13 kg, 175.26 cm) iw 10:48 Pain Scale: Adult iw MDM: 10:44 Medical Screening Exam initiated ms3 10:45 Differential diagnosis: abnormal EKG, acute myocardial infarction, coronary artery ms3 disease pneumonia, thoracic aortic disection. 16:49 HEART Score: History: Highly Suspicious (2), ECG: Non specific repolarization ms3 disturbance / LBTB / PM (1), Age: > 45 and < 65 years (1), Risk Factors: > or = 3 Risk factors for atherosclerotic disease (2), [Hypercholesterolemia] [Hypertension] [DM] Troponin: > or = 3 x Normal Limit (2), Total Score = 8. The patient was given aspirin in the Emergency Department. Data reviewed: vital signs, nurses notes, lab test result(s), EKG, radiologic studies, and as a result, I will admit patient. Consideration of Admission/Observation Patient was admitted/placed on observation. Management of patient was discussed with the following: Hospitalist: Dr Adam. I considered the following discharge prescriptions or medication management in the emergency department Medications were administered in the Emergency Department. See MAR. Counseling: I had a detailed discussion with the patient and/or guardian regarding the historical points, exam findings, and any diagnostic results supporting the discharge/admit diagnosis, lab results, radiology results, the need for further work-up and treatment in the hospital. ED course: Discussed labs and necessity for admission with patient. Patient or stands agrees with plan. All questions were answered. Patient remained in stable condition while in the emergency department.. 05/14 10:44 Order name: Basic Metabolic Panel; Complete Time: 12:37 ms3 05/14 10:44 Order name: CBC with Diff; Complete Time: 11:20 ms3 05/14 10:44 Order name: Magnesium; Complete Time: 12:37 ms3 05/14 10:44 Order name: Troponin HS; Complete Time: 12:37 ms3 05/14 13:49 Order name: T4 Free EDMS 05/14 13:49 Order name: Thyroid Stimulating Hormone EDMS 05/14 13:49 Order name: Urinalysis w/ reflexes EDMS 05/14 13:49 Order name: Basic Metabolic Panel EDMS 05/14 13:49 Order name: Basic Metabolic Panel EDMS 05/14 13:49 Order name: CBC with Automated Diff EDMS 05/14 13:49 Order name: CBC with Automated Diff EDMS 05/14 13:49 Order name: Lipid Profile EDMS 05/14 13:49 Order name: Lipid Profile EDMS 05/14 13:49 Order name: Magnesium EDMS 05/14 13:49 Order name: Magnesium EDMS 05/14 13:49 Order name: Phosphorus EDMS 05/14 13:49 Order name: Phosphorus EDMS 05/14 13:49 Order name: Troponin High Sensitivity EDMS 05/14 13:49 Order name: Troponin High Sensitivity EDMS 05/14 13:49 Order name: Troponin High Sensitivity EDMS 05/14 10:44 Order name: XRAY Chest (1 view); Complete Time: 12:37 ms3 05/14 10:48 Order name: CT Aorta for Dissection; Complete Time: 12:37 ms3 05/14 13:49 Order name: Echo with Doppler EDMS 05/14 14:02 Order name: CONS Physician Consult EDMS 05/14 10:44 Order name: Cardiac monitoring; Complete Time: 11:12 ms3 05/14 10:44 Order name: EKG - Nurse/Tech; Complete Time: 10:45 ms3 05/14 10:44 Order name: IV Saline Lock; Complete Time: 11:12 ms3 05/14 10:44 Order name: Labs collected and sent; Complete Time: 11:12 ms3 05/14 10:44 Order name: O2 Per Protocol; Complete Time: 11:12 ms3 05/14 10:44 Order name: O2 Sat Monitoring; Complete Time: 11:13 ms3 05/14 11:23 Order name: Misc. Order: lab redraw green top; Complete Time: 11:34 sp EC:03 Rate is 118 beats/min. Rhythm is regular. QRS [place] is Normal. SD interval is normal. ms3 QRS interval is normal. Clinical impression: Sinus tachycardia. Interpreted by me. Reviewed by me. Administered Medications: 11:05 Drug: Aspirin PO Chewable Tablet 324 mg PO once; 81 mg tablets x 4 Route: PO; hb 13:16 Follow up: Response: No adverse reaction tm6 13:16 Drug: Labetalol IV 10 mg IV at calculated rate once Route: IV; Rate: calculated rate; tm6 Site: left wrist; 13:35 Follow up: IV Status: Completed infusion; IV Intake: 2ml tm6 13:35 Follow up: Response: No adverse reaction tm6 Disposition Summary: 05/14/24 13:02 Hospitalization Ordered Notes: Hospitalization Status: Inpatient Admission ms3 Provider: Burton Adam ms3 Location: Telemetry/[facility] (Inpatient) ms3 Condition: Stable ms3 Problem: new ms3 Symptoms: are unchanged ms3 Bed/Room Type: Standard ms3 Room Assignment: 230(05/14/24 14:01) sp Diagnosis - Chest pain, unspecified ms3 - Elevated troponin ms3 - End stage renal disease ms3 Forms: - Medication Reconciliation Form ms3 - SBAR form ms3 - Leadership Thank You Letter ms3 Signatures: Dispatcher [employer] EDND Yisel Pedroza Chastity Patel RN RN Chika Gates RN RN Bassem Jones DO DO ms3 Anselmo Berman RN RN tm6 Corrections: (The following items were deleted from the chart) 10:49 10:49 PMHx: PERITONEAL DIALYSIS; [facility] 14:01 13:02 ms3 sp
--- NOTE | 2024-05-14 13:03 | ER ---
Nurse's Notes [facility] Name: Robin Lee Age: 64 yrs Sex: Male : 1960 Arrival Date: 05/14/2024 Time: 10:36 Bed 3 Private MD: Diagnosis: Chest pain, unspecified;Elevated troponin;End stage renal disease Presentation: 05/14 10:48 Chief complaint: Patient states: chest tightness X 15 minutes, tingling in left arm , iw felt clammy and vomited once. Coronavirus screen: At this time, the client does not indicate any symptoms associated with coronavirus-19. Ebola Screen: No symptoms or risks identified at this time. Initial Sepsis Screen: Does the patient meet any 2 criteria? No. Patient's initial sepsis screen is negative. Does the patient have a suspected source of infection? No. Patient's initial sepsis screen is negative. Risk Assessment: Do you want to hurt yourself or someone else? Patient reports no desire to harm self or others. Onset of symptoms was May 14, 2024. 10:48 Method Of Arrival: Wheelchair iw 10:48 Acuity: CARLEE 2 iw Historical: - Allergies: 10:49 No Known Allergies; iw - PMHx: 10:49 Diabetes - NIDDM; High Cholesterol; Hypertension; Dialysis; iw - Immunization history:: Adult Immunizations up to date. - Infectious Disease History:: Denies. - Social history:: Smoking status: Patient denies any tobacco usage or history of. Screenin:39 [facility] ED Fall Risk Assessment (Adult) History of falling in the last 3 months, tm6 including since admission No falls in past 3 months (0 pts) Confusion or Disorientation No (0 pts) Intoxicated or Sedated No (0 pts) Impaired Gait No (0 pts) Mobility Assist Device Used No (0 pt) Altered Elimination No (0 pt) Score/Fall Risk Level 0 - 2 = Low Risk Oriented to surroundings, Maintained a safe environment, Educated pt \T\ family on fall prevention, incl call for assistance when getting out of bed. Abuse screen: Denies threats or abuse. Denies injuries from another. Nutritional screening: No deficits noted. Tuberculosis screening: No symptoms or risk factors identified. Assessment: 10:39 General: Appears distressed, uncomfortable, Behavior is cooperative, anxious. Pain: tm6 Complains of pain in chest and left arm Pain radiates to left arm Pain began 15 min ago. Neuro: Level of Consciousness is awake, alert, obeys commands, Oriented to person, place, time, situation. Cardiovascular: Reports chest pain, diaphoresis, Patient's skin is warm and dry. Respiratory: Airway is patent Respiratory effort is even, unlabored, Respiratory pattern is regular, symmetrical. GI: No signs and/or symptoms were reported involving the gastrointestinal system. Abdomen is round. : No signs and/or symptoms were reported regarding the genitourinary system. EENT: No signs and/or symptoms were reported regarding the EENT system. Derm: No signs and/or symptoms reported regarding the dermatologic system. Musculoskeletal: No signs and/or symptoms reported regarding the musculoskeletal system. 12:31 Reassessment: Patient and/or family updated on plan of care and expected duration. Pain tm6 level reassessed. Patient is alert, oriented x 3, equal unlabored respirations, skin warm/dry/pink. 13:35 Reassessment: Patient and/or family updated on plan of care and expected duration. Pain tm6 level reassessed. Patient is alert, oriented x 3, equal unlabored respirations, skin warm/dry/pink. 14:29 Reassessment: report faxed to [facility], confirmed by Juliana. tm6 14:58 Reassessment: Patient and/or family updated on plan of care and expected duration. Pain tm6 level reassessed. Patient is alert, oriented x 3, equal unlabored respirations, skin warm/dry/pink. Vital Signs: 10:48 Weight 111.13 kg; Height 5 ft. 9 in. ; Pain 9/10; iw 11:16 BP 214 / 91; Pulse 81; Resp 20; Pulse Ox 100% on R/A; MAP 128 mmHg; tm6 12:22 BP 227 / 97; Pulse 74; Resp 22; Pulse Ox 100% on R/A; tl4 13:34 BP 202 / 71; Pulse 69; Pulse Ox 98% on R/A; MAP 110 mmHg; tm6 13:58 BP 182 / 92; Pulse 71; Pulse Ox 97% on R/A; MAP 116 mmHg; tm6 14:29 BP 194 / 89; Pulse 72; Pulse Ox 96% on R/A; MAP 120 mmHg; tm6 10:48 Body Mass Index 36.18 (111.13 kg, 175.26 cm) iw 10:48 Pain Scale: Adult iw ED Course: 10:37 Patient arrived in ED. ra3 10:37 Bassem Jones DO is Attending Physician. ms3 10:39 Patient has correct armband on for positive identification. Placed in gown. Bed in low tm6 position. Call light in reach. Side rails up X 1. Provided Education on: use of call devine; wait times. Client placed on continuous cardiac and pulse oximetry monitoring. NIBP monitoring applied. monitoring specialist on. Pulse ox on. NIBP on. Door closed. Noise minimized. Warm blanket given. Pillow given. 10:49 Triage completed. iw 10:49 Arm band placed on. iw 11:04 Patient maintains SpO2 saturation greater than 95% on room air. hb 11:08 Initial lab(s) drawn, by me, sent to lab. Inserted saline lock: 22 gauge in right hb wrist, using aseptic technique. Blood collected. Flushed with 10 mL NS. 11:10 CT Aorta for Dissection In Process Unspecified. EDMS 11:[address] via stretcher. hb 11:13 Basic Metabolic Panel Sent. hb 11:13 CBC with Diff Sent. hb 11:13 Magnesium Sent. hb 11:13 Troponin HS Sent. hb 11:16 Anselmo Berman, RN is Primary Nurse. tm6 11:34 Lab(s) recollected, by me, sent to lab. em1 12:16 XRAY Chest (1 view) In Process Unspecified. EDMS 12:58 Burton Adam MD is Hospitalizing Provider. ms3 14:58 No provider procedures requiring assistance completed. Patient admitted, IV remains in tm6 place. Administered Medications: 11:05 Drug: Aspirin PO Chewable Tablet 324 mg PO once; 81 mg tablets x 4 Route: PO; hb 13:16 Follow up: Response: No adverse reaction tm6 13:16 Drug: Labetalol IV 10 mg IV at calculated rate once Route: IV; Rate: calculated rate; tm6 Site: left wrist; 13:35 Follow up: IV Status: Completed infusion; IV Intake: 2ml tm6 13:35 Follow up: Response: No adverse reaction tm6 Medication: 10:39 VIS not applicable for this client. tm6 Intake: 13:35 IV: 2ml; Total: 2ml. tm6 Outcome: 13:02 Decision to Hospitalize by Provider. ms3 14:59 Admitted to Med/surg accompanied by tech, via stretcher, tm6 14:59 Condition: stable 14:59 Instructed on the need for admit, 14:59 Patient left the ED. tm6 Signatures: Dispatcher [employer] EDChastity Rendon, RN DENIS Jose Cruz Velasco em1 Chika Gates, RN RN Bassem Jones, DO ms3 Anselmo Berman RN RN tm6 Dylan Wilson RN RN tl4 Samreen Ortiz ra3 Corrections: (The following items were deleted from the chart) 10:49 10:49 PMHx: PERITONEAL DIALYSIS; [facility] 11:19 11:16 Pulse 81bpm; Resp 20bpm; Pulse Ox 100% RA; tm6 tm6
[2024-05-14] MEDS ORDERED: LABETALOL 20 MG/4ML SYRINGE IV ONE (13:11)
[2024-05-14] MEDS ORDERED: ACETAMINOPHEN 325 MG TABLET PO PRN (13:41)
--- NOTE | 2024-05-14 14:11 | P.HP ---
Certification for Inpatient Patient admitted to: Observation With expected LOS: <2 Midnights Practitioner: I am a practitioner with admitting privileges, knowledge of patient current condition, hospital course, and medical plan of care. 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 He reports chest pain as pressure with radiating pain from his back and tingling down the left arm, diaphoresis, and vomitted on the way to the ED. Laboratory evaluation showing Troponin 213, BUN/Creatinine 40/8.0, GFR 7. CT dissection negative, Chest xray showing "[id number] pulmonary edema pattern, Moderate CHF suspected." Robin reports right lung surgery d/t peritoneal dialysis fluid leaking into his lung requiring repair of the diaphragm and cleaning out the dialysis fluid. He states, this chest pain is not the same as his right lung surgery. CT dissection reports "MPRESSION: No evidence of thoracic or abdominal aortic aneurysm or dissection. Airspace opacity in the left base associated with a small loculated pleural effusion could be related to infection/pneumonia. Follow-up imaging after appropriate treatment to ensure complete clearance is recommended." Robin will be admitted to hospitalist service for further evaluation of chest pain, NSTEMI, cardiology has been consulted. Allergies No Known Allergies Allergy (Unverified 07/06/20 16:21) Home Medications: Amlodipine [Norvasc*] 10 mg PO BID 07/06/20 Bumetanide [Bumex*] 2 mg PO BID 07/06/20 Hydralazine [Apresoline*] 25 mg PO BID 07/06/20 carvediloL [Coreg*] 12.5 mg PO BID 07/06/20 Sevelamer Carbonate [Renvela*] 1,600 mg PO TIDWM #180 tablet 07/07/20 Linaclotide [Linzess] 72 mcg PO DAILY 05/14/24 Sertraline [Zoloft] 100 mg PO DAILY 05/14/24 - Past Medical/Surgical History -: ESRD -: Peritoneal dialysis -: Hypertension -: Diabetes -: Obesity -: Obstructive sleep apnea -: Peritoneal dialysis catheter placement - Social History Smoking Status: Never smoker Alcohol use: No CD- Drugs: No Review of Systems General: Sweats Cardiovascular: Chest Pain Gastrointestinal: Nausea, Vomiting Neurological: Other Physical Examination - Physical Exam General: Alert, In no apparent distress, Oriented x3 HEENT: Atraumatic, Normocephalic, PERRLA Neck: Supple Respiratory: Clear to auscultation bilaterally, Normal air movement Cardiovascular: No edema, Normal pulses, Regular rate/rhythm, Normal S1 S2 Capillary refill: <2 Seconds Gastrointestinal: Normal bowel sounds, Soft and benign Musculoskeletal: No clubbing Integumentary: No rashes Neurological: Normal speech, Normal tone - Studies Laboratory Data (last 24 hrs) 05/14/24 05/14/24 11:32 11:08 WBC 6.30 Hgb 12.6 L Hct 38.7 L Plt Count 224 Sodium 133 L Potassium 4.4 BUN 40 H Creatinine 8.01 H Glucose 261 H Magnesium 3.0 H Assessment and Plan - Plan Assessment and Plan Chest pain r/o ACS NSTEMI Moderate CHF Mild-moderate pulmonary edema Small loculated pleural effusion -Chest xray reports "Lylx-ny-nqlcrhji pulmonary edema pattern. The heart is moderately enlarged in size. No displaced fractures identified. IMPRESSION: Moderate CHF suspected." -CT dissection reports "MPRESSION: No evidence of thoracic or abdominal aortic aneurysm or dissection. Airspace opacity in the left base associated with a small loculated pleural effusion could be related to infection/pneumonia. Follow-up imaging after appropriate treatment to ensure complete clearance is recommended." -Troponin 213, serial pending -Cardiology consulted, Heart cath today showing Mild CAD -Continuous telemetry -Lipid panel, TSH, A1C in the AM -ECHO ordered HLD/HTN -continue home medicaitons ESRD -nephrology consulted -dialysis T Th S, next chair time is Friday at 12 noon - BUN/Creatinine 40/8.0, GFR 7 -repeat BMP stat s/p contrast use for CT dissection DVT ppx SCD full code LOS 24 hour OBS Discharge Plan: Home Plan to discharge in: 24 Hours - Advance Directives Does patient have a Living Will: No Does patient have a Durable POA for Healthcare: No
[2024-05-14 15:16] VITALS: BMI 36.1
[2024-05-14] MEDS: HYDRALAZINE HCL 20 MG/ML VIAL IV PRN (15:28)
[2024-05-14] MEDS ORDERED: HEPARIN 10,000 UNIT/10 ML VIAL IV ONE (15:36)
[2024-05-14] MEDS ORDERED: HEPA 1000U/500MLS 2,000 UNIT/1,000 ML BAG IV ONE (15:36)
[2024-05-14] MEDS ORDERED: ATROPINE SULF 1 MG/10 ML SYR IV ONE (15:37)
[2024-05-14] MEDS ORDERED: MIDAZOLAM HCL 2 MG/2 ML INJ ONE (15:37)
[2024-05-14] MEDS ORDERED: CLOPIDOGREL 75 MG TABLET ONE (15:37)
[2024-05-14] MEDS ORDERED: HEPARIN 5000 UNIT/ML 1 ML VIAL ONE (15:37)
[2024-05-14] MEDS ORDERED: ASPIRIN 325 MG TAB ONE (15:38)
[2024-05-14] MEDS ORDERED: FENTANYL CITR 100 MCG/2 ML ONE (15:38)
[2024-05-14] MEDS ORDERED: TICAGRELOR 90 MG TABLET PO ONE (15:38)
[2024-05-14] MEDS ORDERED: LIDOCAINE 1% 20 ML MDV ONE (15:44)
[2024-05-14] MEDS ORDERED: NITROGLYCERIN/D5W 50 MG/250 ML BTL IV ONE (15:51)
[2024-05-14] MEDS ORDERED: HEPARIN/D5W 25,000 UNIT/500 ML BAG IV SCH (16:00)
[2024-05-14] MEDS ORDERED: NA CHLORIDE 0.9% 500 ML ONE (16:00)
--- NOTE | 2024-05-14 16:06 | P.CNS ---
Date of Consult: 05/14/24 Chief Complaint: Chest pain R/O ACS History of Present Illness: Patient with PMH of ESRD on HD, HTN presented with cehst pain started from his back then went to his chest, pressure in nature, radiated to his left arm associated with nausea and vomiting. Allergies No Known Allergies Allergy (Unverified 07/06/20 16:21) Home medications list reviewed: Yes Home Medications: Amlodipine [Norvasc*] 10 mg PO BID 07/06/20 Bumetanide [Bumex*] 2 mg PO BID 07/06/20 Hydralazine [Apresoline*] 25 mg PO BID 07/06/20 carvediloL [Coreg*] 12.5 mg PO BID 07/06/20 Sevelamer Carbonate [Renvela*] 1,600 mg PO TIDWM #180 tablet 07/07/20 Linaclotide [Linzess] 72 mcg PO DAILY 05/14/24 Sertraline [Zoloft] 100 mg PO DAILY 05/14/24 - Past Medical/Surgical History Diabetic: Yes -: ESRD -: Peritoneal dialysis -: Hypertension -: Diabetes -: Obesity -: Obstructive sleep apnea -: Peritoneal dialysis catheter placement - Social History Alcohol use: No CD- Drugs: No Place of Residence: Home Review of Systems 10-point ROS is otherwise unremarkable Physical Examination Temp Pulse Resp BP Pulse Ox 72 22 H 194/89 H 05/14/24 14:29 05/14/24 12:22 05/14/24 14:29 General: Alert, In no apparent distress HEENT: Atraumatic, PERRLA, Mucous membr. moist/pink, EOMI, Sclerae nonicteric Neck: Supple, 2+ carotid pulse no bruit, No LAD, Without JVD or thyroid abnorm ality Respiratory: Clear to auscultation bilaterally, Normal air movement Cardiovascular: Regular rate/rhythm, Normal S1 S2 Gastrointestinal: Normal bowel sounds, No tenderness Musculoskeletal: No tenderness Integumentary: No rashes Neurological: Normal gait, Normal speech, Normal tone, Normal affect Lymphatics: No axilla or inguinal lymphadenopathy Laboratory Data (last 24 hrs) 05/14/24 05/14/24 11:32 11:08 WBC 6.30 Hgb 12.6 L Hct 38.7 L Plt Count 224 Sodium 133 L Potassium 4.4 BUN 40 H Creatinine 8.01 H Glucose 261 H Magnesium 3.0 H - Problems (1) NSTEMI (non-ST elevated myocardial infarction) Current Visit: Yes Status: Acute Plan: NPO for selective coronary angiogram ASA 81 mg daily Lipitor 40 mg daily (2) End stage renal disease Current Visit: No Status: Acute Plan: continue dialysis. (3) Hypertension Current Visit: No Status: Acute Plan: reconcile and resume paient home medications
[2024-05-14] MEDS: INSULIN REGULAR (HUMAN) 100 UNIT/ML SQ SCH (16:30)
[2024-05-14] MEDS: SEVELAMER CARBONATE 800 MG TABLET PO SCH (17:00)
[2024-05-14] MEDS: carvediloL 12.5 MG TAB PO SCH (17:00)
[2024-05-14] MEDS: HYDRALAZINE HCL 25 MG TABLET PO SCH (17:00)
[2024-05-14 18:45] LABS: Anion Gap 11.5 mEq/L (5.0-15.0); Potassium 4.5 mEq/L (3.5-5.1)
[2024-05-14 18:47] VITALS: O2SAT 98
--- NOTE | 2024-05-14 19:56 | OP ---
Date of Procedure: 05/14/2024 Surgeon: Ramses Brennan Procedures Performed: 1.Selective coronary angiogram. 2.Left heart catheterization. Indication For Procedure: [id number] OK. Complications: None. Estimated Blood Loss: Less than 50 cc. Access: Right radial, closed by TR band. Sedation Time: 20 minutes with 1 of Versed and 55 of fentanyl. Description Of Procedure: After risks, benefits, and alternatives were explained to the patient, the patient agreed to proceed with the procedure and signed informed consent. The patient was brought b k to the oil laboratory analyst, prepped and draped in sterile fashion. Time-out was performed. Sedation was ad ministered. Next, the right radial access was obtained using ultrasound-guided micropuncture technVoiceBunny ue. [place] 4 catheter was advanced over the J-wire to the LV cavity. LVEDP was obtained. Pullback d id not show any gradient. Same catheter was used for selective angiogram of the left and right coron parul systems. At the end of procedure, catheter was removed over a J-wire. Sheath was removed. TR b and was applied. Hemostasis was achieved and the patient was moved to recovery in stable condition. Findings: 1.Left main, normal. 2.LAD, small diffuse disease. 3.Left circ, mild luminal irregularities. 4.RCA, large dominant with mid diffuse 40% disease, then mild luminal irregularities. 5.RPDA, mild luminal irregularities. 6.LVEDP 25 mmHg. Assessment And Plan: 1.Duwk-la-cowertyd nonobstructive CAD. 2.Elevated filling pressure. Plan will be to continue medical management for CAD and aggressive control of blood pressure and diur esis. PUENTE/MODL Voice ID: [id number] Report ID: [id number]
[2024-05-14] MEDS: ATORVASTATIN 40 MG TAB PO SCH (20:53)
[2024-05-14] MEDS: AMLODIPINE 10 MG TAB PO SCH (20:53)
--- NOTE | 2024-05-15 03:11 | CON ---
Date of Consultation: 05/14/2024 Chief Complaint: End-stage renal disease, on hemodialysis. History Of Present Illness: The patient came to the hospital because of shortness of breath and ches t pain. The patient is a 64-year-old man with history of end-stage renal disease, on dialysis , , Friday; hypertension; hyperlipidemia, who presents to the emergency room with chest pa in. He reports chest pain as pressure with radiation to the back and tingling down to left arm, diap horesis. He vomited in the emergency room. Laboratories show troponin elevated up to 213, BUN and c reatinine 40/8.0. GFR 7. CT dissection was negative. Chest x-ray showed [id number]-[id number] pulmonary edema pattern, moderate congestive heart failure. The patient previously had right lung surgery due to peritoneal dialysis fluid leaking into the lungs and related pleural effusion. He had surgery to repair diaphragm and decortication. CT dissection showed no evidence of thoracic or abdominal aorti c aneurysm or dissection, air space opacity in the left base associated with small loculated pleural effusion, could be related to pneumonia or infection. The patient underwent cardiac catheterization today. He has a history of uncontrolled hypertension. Past Medical History: End-stage renal disease; peritoneal dialysis, hemodialysis; hypertension; diab etes mellitus; obesity; obstructive sleep apnea; on peritoneal dialysis catheter placement. Social History: Never smoker. Denies alcohol. Review of Systems: General: Denies fever, chills. Complains of night sweats. Cardiovascular: Denies palpitations. He has chest pain. Gastrointestinal: Has nausea, vomiting. Denies melena or hematemesis. All other systems reviewed and all are negative. Physical Examination: General: Not in acute distress eyes. HEENT: Eyes, anicteric sclerae. EOMI. Ears, Nose, Mouth, and Throat: Oral mucosa moist. No pallo r. Neck: Supple. No bruits. Lungs: Diminished breath sounds at bases. Heart: S1, S2. Abdomen: Soft, benign. Extremities: Slight edema. Laboratory Data: Hemoglobin 12.2, WBC 6.3, platelet count 224,000. Sodium 133, potassium 4.4, BUN 4 0, creatinine 8.01, glucose 261, magnesium 3.0. Impression And Plan: 1.End-stage renal disease, plan is to provide dialysis for metabolic clearance and ultrafiltration. The patient received IV contrast and plan is to re-evaluate potassium level to rule out hyperkalemia . 2.Small loculated pleural effusion, pulmonary edema, moderate congestive heart failure, suspect this patient has acute coronary syndrome, received IV contrast and dialysis will be done with ultrafiltra tion as soon as possible. 3.CT dissection did not show evidence of abdominal aortic aneurysm or dissection. Further recommend ation from primary team. 4.Anemia. Chronic kidney disease. Hemoglobin level is satisfactory. HAL on hold. 5.Renal osteodystrophy. Continue renal diet and binders. 6.Hypertension, blood pressure medication. EB/MODL Voice ID: [id number] Report ID: [id number]
[2024-05-15] MEDS: ASPIRIN EC 81 MG TAB PO SCH (08:07)
[2024-05-15] MEDS: SERTRALINE HCL 100 MG TAB PO SCH (08:07)
[2024-05-15] MEDS: HOME MED 1 EA UNK (Linaclotide [Linzess] 72 MCG Capsule) PO SCH (08:10)
[2024-05-15] MEDS ORDERED: POLYETHYL GLY 3350 17 GM/DOSE PO PRN (10:29)
[2024-05-15 12:59] VITALS: TEMP 98
[2024-05-15 13:47] LABS: Absolute Basophils 0.1 K/uL (0-0.5); Absolute Eosinophils 0.1 K/uL (0-0.5); Absolute Lymphocytes (CBC) 0.6 K/uL (0.7-4.9); Absolute Monocytes 0.5 K/uL (0.1-1.3); Absolute Neutrophil 6.1 K/uL (1.8-8.0); Basophils % 0.9 % (0-1.3); Hematocrit 32.9 % (39.6-49.0); Hemoglobin 10.8 g/dL (13.6-17.9); Lymphocytes % 7.5 % (15.3-44.8); MCH 30.6 pg (27.0-35.0); MCHC 32.7 g/dL (32.0-36.0); MCV 93.7 fL (80-100); MPV 7.7 fL (7.6-11.3); Neutrophils % 83.6 % (41.7-73.7); Platelets 206 thou/uL (152-406); RBC Red Blood Cell Count 3.52 M/uL (4.33-5.43); Red Cell Distribution Width 14.5 % (12.1-15.2)
[2024-05-15 14:22] LABS: Anion Gap 12.5 mEq/L (5.0-15.0); Phosphorus 5.1 mg/dL (2.5-4.9); Potassium 4.5 mEq/L (3.5-5.1); Thyroid Stimulating Hormone 1.99 uIU/mL (0.358-3.740)
--- NOTE | 2024-05-15 14:52 | P.PN ---
Subjective Date of Service: 05/15/24 Chief Complaint: Chest pain R/O ACS Subjective: No new changes Physical Examination - Vital Signs Temperature: 98.0 F Blood Pressure: 199/86 Pulse: 81 Respirations: 12 Pulse Ox (%): 95 - Physical Exam General: Other (chronically ill-appearing) HEENT: Atraumatic, Normocephalic Neck: Supple Respiratory: Other (symmetric chest expansion) Cardiovascular: No rubs, No murmurs Gastrointestinal: Soft and benign, No guarding Musculoskeletal: No clubbing Integumentary: No warmth Neurological: Normal tone Urinary: Other (no bladder distention) External genitalia: Deferred Rectal: Deferred Assessment And Plan - Plan 1. ESRD. HD received today. 2. L loculated pleural effusion, pulmonary edema, moderate congestive heart failure. Per other services. HD as above. 3. Htn. Continue current medication regimen. HD as above. 4. Anemia. Monitor CBC. 5. Renal osteodystrophy. monitor serum calcium and phosphorus.
[2024-05-15 15:10] LABS: Hepatitis B surface AG Interp. Nonreactive (Nonreactive)
[2024-05-15 15:11] LABS: HBsAG Nonreactive Report Report
--- NOTE | 2024-05-15 17:55 | P.DS ---
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 He reports chest pain as pressure with radiating pain from his back and tingling down the left arm, diaphoresis, and vomitted on the way to the ED. Laboratory evaluation showing Troponin 213, BUN/Creatinine 40/8.0, GFR 7. CT dissection negative, Chest xray showing "Bjjg-we-lzmxovcw pulmonary edema pattern, Moderate CHF suspected." Robin reports right lung surgery d/t peritoneal dialysis fluid leaking into his lung requiring repair of the diaphragm and cleaning out the dialysis fluid. He states, this chest pain is not the same as his right lung surgery. CT dissection reports "MPRESSION: No evidence of thoracic or abdominal aortic aneurysm or dissection. Airspace opacity in the left base associated with a small loculated pleural effusion could be related to infection/pneumonia. Follow-up imaging after appropriate treatment to ensure complete clearance is recommended." Robin will be admitted to hospitalist service for further evaluation of chest pain, NSTEMI, cardiology has been consulted. Hospital Course: Robin Lee is a 64 year old male with Pmhx ESRD (dialysis T TH S), HTN, HLD, who was admitted to [facility] on 05/14/24 for chest pain ACS rule out. Robin presented with chest pain/pressure that radiated to his back and tingling down the left arm, diaphoresis, and vomitting. Troponin was elevated and Dr. Brennan was consulted. Robin was taken to the catholic priest which showed Acute coronary artery syndrome. His blood pressure was elevated and he required dialysis on Tuesday 05/15. His blood pressure resolved after dialysis and was hemodynamically stable for discharge. He is ambulating independently, tolerating PO diet, and reports chest pain has resolved. Plan to follow up with PCP, cardiology, and nephrology for continued medication management. Monitoring BP education provided. Robin was seen after dialysis and was deemed stable for discharge home with family support. Continue with home medications and follow up with Dr. Li (nephrology), Dr. Brennan (cardiology), and PCP. Robin will start taking Aspirin and lipitor. Physical Exam General: Alert and Oriented x3, NAD HEENT: Atraumatic, Normocephalic, PERRLA Neck: Supple Respiratory: Clear to auscultation bilaterally, Normal air movement, on RA Cardiovascular: No edema, Normal pulses, NSR, Normal S1 S2 Capillary refill: <2 Seconds Gastrointestinal: Normal bowel sounds, Soft and benign on palpation Musculoskeletal: No clubbing Integumentary: No rashes Neurological: Normal speech, Normal tone Vital Signs/Physical Exam: Temp Pulse Resp BP Pulse Ox 98.0 F 88 16 118/57 L 99 05/15/24 14:52 05/15/24 17:22 05/15/24 17:22 05/15/24 17:22 05/15/24 17:22 Laboratory Data at Discharge: WBC 7.40 thou/uL (4.3-10.9) 05/15/24 13:20 Hgb 10.8 g/dL (13.6-17.9) L D 05/15/24 13:20 Hct 32.9 % (39.6-49.0) L 05/15/24 13:20 Plt Count 206 thou/uL (152-406) 05/15/24 13:20 Sodium 132 mEq/L (136-145) L 05/15/24 13:20 Potassium 4.5 mEq/L (3.5-5.1) 05/15/24 13:20 BUN 52 mg/dL (7-18) H 05/15/24 13:20 Creatinine 9.24 mg/dL (0.70-1.30) H 05/15/24 13:20 Glucose 203 mg/dL (74-106) H 05/15/24 13:20 Phosphorus 5.1 mg/dL (2.5-4.9) H 05/15/24 13:20 Magnesium 3.0 mg/dL (1.6-2.4) H 05/15/24 13:20 Triglycerides 112 mg/dL (<150) 05/15/24 13:20 Cholesterol 108 mg/dL (<200) 05/15/24 13:20 HDL Cholesterol 45 mg/dL (40-60) 05/15/24 13:20 Cholesterol/HDL Ratio 2.40 05/15/24 13:20 Home Medications: Amlodipine [Norvasc*] 10 mg PO BID 07/06/20 Bumetanide [Bumex*] 2 mg PO BID 07/06/20 Hydralazine [Apresoline*] 25 mg PO BID 07/06/20 carvediloL [Coreg*] 12.5 mg PO BID 07/06/20 Sevelamer Carbonate [Renvela*] 1,600 mg PO TIDWM #180 tablet 07/07/20 Linaclotide [Linzess] 72 mcg PO DAILY 05/14/24 Sertraline [Zoloft] 100 mg PO DAILY 05/14/24 Physician Discharge Instructions: 1. Please call and schedule follow up visit with PCP in one week 2. Please call and schedule follow up visit with Dr. Li or your test driver in one week -continue scheduled dialysis 3. Please call and schedule follow up visit with Dr. Brennan or your bowl topper in one week -Monitor blood pressure and adjustments can be made by Dr. Brennan 4. continue renal diet 5. Return to the ED if symptoms worsen New medications Aspirin 81 mg daily lipitor 40 mg daily Left heart cath reports mild coronary artery disease, no obstructions. Diet: Renal Activity: Ad atul Followup: NONE,NONE [Primary Care Provider] - Ramses Brennan MD [ACTIVE - CAN ADMIT] - Maryuri Li [ACTIVE - CAN ADMIT] -
[2024-05-15] MEDS ORDERED: BISACODYL E.C. 5 MG TAB PO SCH (21:00)
[2024-05-16 09:04] VITALS: BP 199/86
--- NOTE | 2024-05-16 12:44 | EKG ---
Test Date: 2024-05-14 Test Time: 10:44:36 Nautical Instrument Mechanic: LUIS EDUARDO MEASUREMENT RESULTS: Intervals: Rate: 118 MO: 162 QRSD: 74 QT: 320 QTc: 448 [place]: P: 49 MO: 162 QRS: -6 T: 60 INTERPRETIVE STATEMENTS: Sinus tachycardia Otherwise normal ECG Compared to ECG 10/21/2022 01:51:01 Sinus rhythm no longer present Myocardial infarct finding no longer present Electronically Signed On 05-16-24 12:39:55 AUTOMOTIVE POWER ELECTRONICS ENGINEER by Ramses Brennan
--- NOTE | 2024-05-17 09:32 | ECHO ---
HEIGHT: 5 ft 9 in WEIGHT: 245 lb 0 oz DATE OF STUDY: 05/14/[address]: Taty Ross NP 2-DIMENSIONAL: YES M.MODE: YES DOPPLER: YES COLOR FLOW: YES TDS: YES PORTABLE: YES DEFINITY: BUBBLE STUDY: DIAGNOSIS: CHEST PAIN, RULE OUT ACUTE CORONARY SYNDROME CARDIAC HISTORY: CATHERIZATION: NO SURGERY: NO PROSTHETIC VALVE: NO PACEMAKER: NO MEASUREMENTS (cm) DIASTOLIC (NORMALS) SYSTOLIC (NORMALS) IVSd 1.3 (0.6-1.2) LA Diam 3.3 (1.9-4.0) LVEF 60-65% LVIDd 4.6 (3.5-5.7) LVIDs 2.9 (2.0-3.5) %FS 37% LVPWd 1.3 (0.6-1.2) Ao Diam 1.4 (2.0-3.7) 2 DIMENSIONAL ASSESSMENT: RIGHT ATRIUM: NORMAL LEFT ATRIUM: NORMAL RIGHT VENTRICLE: NORMAL LEFT VENTRICLE: NORMAL TRICUSPID VALVE: TRACE TRICUSPID REGURGITATION MITRAL VALVE: NORMAL PULMONIC VALVE: NORMAL AORTIC VALVE: NORMAL PERICARDIAL EFFUSION: NONE AORTIC ROOT: MILDLY DILATED LEFT VENTRICULAR WALL MOTION: NORMAL DOPPLER/COLOR FLOW: GRADE I DIASTOLIC DYSFUNCTION COMMENTS: 1. NORMAL LEFT VENTRICULAR SYSTOLIC FUNCTION, EJECTION FRACTION 60-65%, NORMAL WALL MOTION 2. GRADE I DIASTOLIC DYSFUNCTION 3. NORMAL FILLING PRESSURE TECHNOLOGIST: ZOIE PARKER
== END 2024-05-15 18:43 | disposition home or self-care (01) ==
LOC: ER 10:36 → ERHOLD 13:41 → 2ND 14:50
PROVIDERS: ADMIT Hospitalist; ATTEND Hospitalist
PROC: 4A023N7 Measurement of Cardiac Sampling and Pressure, Left Heart, Percutaneous Approach (ICD-10-PCS; principal; 2024-05-14)
PROC: B2111ZZ Fluoroscopy of Multiple Coronary Arteries using Low Osmolar Contrast (ICD-10-PCS; 2024-05-14)
PROC: B2151ZZ Fluoroscopy of Left Heart using Low Osmolar Contrast (ICD-10-PCS; 2024-05-14)
DX: I21.4 Non-ST elevation (NSTEMI) myocardial infarction (principal); I25.10 Atherosclerotic heart disease of native coronary artery without angina pectoris; I13.2 Hypertensive heart and chronic kidney disease with heart failure and with stage 5 chronic kidney disease, or end stage renal disease; E11.22 Type 2 diabetes mellitus with diabetic chronic kidney disease; I50.1 Left ventricular failure, unspecified; N18.6 End stage renal disease; D63.1 Anemia in chronic kidney disease; Z99.2 Dependence on renal dialysis; N25.0 Renal osteodystrophy; E78.5 Hyperlipidemia, unspecified; G47.33 Obstructive sleep apnea (adult) (pediatric); E66.9 Obesity, unspecified; Z79.899 Other long term (current) drug therapy
CPT/HCPCS: 96365; 93005; 93306; 85025 ×2; 80048 ×3; 36415 ×2; 83735 ×2; 84100; 80061; 82947 ×4; 84443; 83036; 84484 ×3; 84439; 87340; 86706; 71275; 74175; 71045; 90935; 93458; 76937; 99285; Q9967; C1893; Q9966; J1644 ×2; J0360 ×2; J2003; J2250; J3010; J7040; 99152; 99153; J0461